=== PATIENT | female | born 1950 | race Caucasian/White ===

== ENCOUNTER → 2017-04-20 | Outpatient (CLI) | payer MEDICARE, BC ==
[~2017-04-20] MED LIST: ACTONEL PO; CLARINEX-D1 TAB.SR . PO; EXCEDRIN MIGRAI1 TA1 PO; HYDROCODONE-APA1 T44 PO; LOPERAMIDE HCL2 M1 PO; OXAPROZIN600 MG PO; REFRESH5 ML OP; RELPAX40 MG PO; SYNTHROID125 PO; TOPAMAX200 MG PO; TRAVATAN5 ML OU; VITAMIN D31 GM PO; VITAMIN D400 UNI1 PO; XYZAL5 MG PO
--- NOTE | ~2017-04-20 | CT4 ---
[facility] A Service of [facility] RADIOLOGY TEXT RESULTS PATIENT: PAIGE RIZO LOCATION: [facility] : 48 UNIT #: [id number] AGE: [address]: Alan Grajeda MD SEX: F ORDER DR: [id number] [address] [address] [id number] O MR#: [id number] Acc #: [id number] NAME: PAIGE RIZO : 1950 SEX: F STUDY DATE/TIME: 04/20/2017 15:41 UNIT: [facility] ROOM: STUDY DESCRIPTION: CT Abd and Pelv Wo Cont Attending Physician: Alan Grajeda M.D. Referring Physician: Alan Grajeda M.D. Ordering Physician: Lang Junior M.D. Primary Care Physician: Lang Junior M.D. MEDICAL IMAGING REPORT This report is preliminary unless electronic signature is present. EXAM CT abdomen and pelvis without contrast INDICATIONS Generalized abdominal pain, right-sided abdominal and flank pain for the past week. PROCEDURE Unenhanced CT of the abdomen and pelvis. This CT exam was performed with one or more of the following radiation dose reduction techniques: Automatic exposure control, adjustment of mA and/or kV according to patient size, and iterative reconstruction. COMPARISON 10/03/2015 FINDINGS ABDOMEN WITHOUT CONTRAST: Included lung bases are clear. The liver, spleen, kidneys, adrenal glands, pancreas unremarkable. Previous cholecystectomy. The bowel loops are nondilated. Appendix is not well seen. PELVIS WITHOUT CONTRAST: Previous hysterectomy. No pelvic mass or fluid. There is a 2-mm calculus at the right UVJ. No hydronephrosis. No aggressive appearing bone lesion. IMPRESSION 1. 2-mm calculus at the right UVJ. No hydronephrosis. 2. The appendix is not well seen on this study. [facility] A Service of [facility] RADIOLOGY TEXT RESULTS PATIENT: PAIGE RIZO LOCATION: [facility] : 48 UNIT #: [id number] AGE: [address]: Alan Grajeda MD SEX: F ORDER DR: Dictated by... Dean Aldridge M.D. THIS IS AN ELECTRONICALLY VERIFIED REPORT Dean Aldridge M.D. at 04/22/2017 2:28 PM EED/psc TD: 04/20/2017 20:52 JOB #: [id number] MEDICAL IMAGING REPORT Page 1 of 1
== END | disposition home or self-care (01) ==
LOC: SCT 15:17
DX: N20.0 Calculus of kidney (principal); N20.1 Calculus of ureter
CPT/HCPCS: 74176

== ENCOUNTER → 2017-04-27 | Outpatient (CLI) | payer MEDICARE, BC ==
--- NOTE | ~2017-04-27 | MY11 ---
[facility] A Service of [facility] RADIOLOGY TEXT RESULTS PATIENT: PAIGE RIZO LOCATION: [facility] : 48 UNIT #: [id number] AGE: [address]: SUE JUNIOR MD (INT MED) SEX: F ORDER DR: [id number] [address] [address] [id number] O MR#: [id number] Acc #: [id number] NAME: PAIGE RIZO : 1950 SEX: F STUDY DATE/TIME: 04/27/2017 10:11 UNIT: [facility] ROOM: STUDY DESCRIPTION: MY Mammogram Screening Dig Yo Attending Physician: Sue Junior M.D. Referring Physician: Sue Junior M.D. Ordering Physician: Sue Junior M.D. Primary Care Physician: Sue Junior M.D. MEDICAL IMAGING REPORT This report is preliminary unless electronic signature is present. EXAM Digital screening mammogram 04/27/2017 [facility]. HISTORY 66-year-old woman; positive family history, sister in her 50s. Patient on hormone replacement x2 years. Annual screening. COMPARISON Comparison mammograms date to 06/09/2007 with most recent screening mammogram 04/17/2015. FINDINGS Digital imaging of each breast was completed utilizing a two-view examination of each breast in craniocaudal and mediolateral-oblique projections. Review and interpretation of digital mammograms include a second review in conjunction with FDA-approved CAD device. There is a normal parenchymal presentation bilaterally consistent with the patient's age. There are no breast masses imaged and no parenchymal asymmetry is visualized. There are no suspicious microcalcifications and I see no focal architectural disturbance. IMPRESSION Negative screening digital mammogram. One-year followup recommended. Patients over the age of 40 are entered into a reminder system with target due date for the next mammogram. A result letter will also be sent to the patient. BIRADS: 1 Negative [facility] A Service of [facility] RADIOLOGY TEXT RESULTS PATIENT: PAIGE RIZO LOCATION: [facility] : 48 UNIT #: [id number] AGE: [address]: SUE JUNIOR MD (INT MED) SEX: F ORDER DR: Dictated by... Jhonatan Van M.D. THIS IS AN ELECTRONICALLY VERIFIED REPORT Jhonatan Van M.D. at 04/27/2017 12:39 PM JARRED/tavo TD: 04/27/2017 11:46 JOB #: [id number] MEDICAL IMAGING REPORT Page 1 of 1
== END | disposition home or self-care (01) ==
LOC: SMAM 09:31
DX: Z12.31 Encounter for screening mammogram for malignant neoplasm of breast (principal); Z80.3 Family history of malignant neoplasm of breast
CPT/HCPCS: G0202